=== PATIENT | female | born 1985 | race Caucasian/White ===

== ENCOUNTER 2018-02-27 21:21 | Emergency (ER) | payer MEDICAID, OTHER ==
[~2018-02-27] VITALS: Ht 182.9 cm; Wt 68.0 kg
[2018-02-27] MEDS ORDERED: CLEOCIN ONE (21:40)
[2018-02-27] MEDS ORDERED: CLEOCIN PO STA (21:42)
--- NOTE | 2018-02-27 21:50 | ER.PDOC ---
General Chief Complaint: Toothache Stated Complaint: TOOTHACHE Time seen by MD: 21:42 Source: patient Exam Limitations: no limitations History of Present Illness Initial Comments Toothache for the past few days Timing/Duration: gradual Context: fractured tooth Associated Symptoms: toothache Severity: moderate Prior symptoms/Treatment: Similar symptoms previous Allergies: Coded Allergies: amoxicillin (Verified Allergy, Unknown, 02/27/18) hydrocodone (Verified Allergy, Unknown, 02/27/18) Past Medical History Medical History: no pertinent history Surgical History: no surgical history LMP (females 10-50): 02/14/18 Social History Smoking: cigarettes, greater than 1 pack/day Alcohol Use: none Drug Use: none Constitutional: no symptoms reported Mouth: see HPI Throat: no symptoms reported Respiratory: no symptoms reported Cardiovascular: no symptoms reported Gastrointestinal: no symptoms reported Musculoskeletal: no symptoms reported All Other Systems: Reviewed and Negative Physical Exam General Appearance: alert, no distress Head/Neck: head nml inspection, neck nml inspection, trachea midline, no lymphadenopathy, thyroid nml Eyes: eyes nml inspection, PERRL, no nystagmus Mouth: dental tenderness (left upper molar), widespread dental decay Throat: pharynx nml, voice nml, no airway problems Respiratory: no resp. distress, lungs clear CVS: reg. rate & rhythm, heart sounds nml Abdomen: non-tender, no organomegaly Extremities: non-tender, ROM nml Skin Exam: Normal Color, Warm/Dry NEURO/PSYCH: oriented X3, mood/effect nml Departure Time of Disposition: 21:45 Disposition: 01 HOME, SELF-CARE Impression: Primary Impression: Pain, dental Additional Impression: Dental caries Condition: Stable Additional Instructions: Clindamycin Ibuprofen F/U with your Dentis GONZÁLEZ Duration or Time Spent with Pa: 20 mins BHAVYA CONNORS MD Feb 27, 2018 21:49
[2018-02-27 21:55] VITALS: BP 137/76
== END 2018-02-27 21:55 | disposition home or self-care (01) ==
LOC: ER 21:21
DX: K02.9 Dental caries, unspecified (principal); F17.210 Nicotine dependence, cigarettes, uncomplicated; Z88.8 Allergy status to other drugs, medicaments and biological substances; Z88.0 Allergy status to penicillin
CPT/HCPCS: 99283

== ENCOUNTER 2018-12-20 19:12 | Emergency (ER) | payer OTHER ==
[~2018-12-20] VITALS: Ht 182.9 cm; Wt 68.0 kg
[2018-12-20 19:25] VITALS: BP 135/86
[2018-12-20] MEDS ORDERED: DEPO-MEDROL IM STA (19:53)
[2018-12-20] MEDS ORDERED: MORPHINE SULFATE IV PRN (20:00)
[2018-12-20] MEDS ORDERED: NORFLEX IM STA (20:02)
[2018-12-20] MEDS ORDERED: NORFLEX ONE (20:05)
[2018-12-20] MEDS ORDERED: DEPO-MEDROL ONE (20:05)
[2018-12-20] MEDS ORDERED: SOLU-MEDROL ONE (20:09)
[2018-12-20] MEDS ORDERED: DECADRON IM STA (20:29)
[2018-12-20] MEDS ORDERED: DECADRON ONE (20:30)
--- NOTE | 2018-12-20 20:45 | DIREP ---
PROCEDURE: CT LUMBAR SPINE WITHOUT CONTRAST TECHNIQUE:Axial cuts were obtained through the lumbar spine. The images were viewed at bone and soft tissue settings. Sagittal and coronal reconstructions are provided. COMPARISON:None. INDICATIONS:BACK PAIN FINDINGS: ALIGNMENT: Normal. No subluxation. VERTEBRAE/DISCS: Four true lumbar type vertebra. L5 is transitional and partially sacralized on the left, which is a normal variant. Hypoplastic ribs are incidentally noted at T12. No fracture or compression abnormality. Small superior endplate Schmorl node at L2. Mild disc space narrowing at L4-5 with a mild broad-based disc bulge and small superimposed central disc protrusion. This results in mild central canal stenosis. No significant disc or facet degenerative changes in the remainder the lumbar spine. PARASPINAL AREA: Normal. No paraspinal edema. OTHER: Retroaortic left renal vein is incidentally noted. Minimal calcified plaque in the right common iliac artery. Visualized portions of the lower chest, abdomen, and pelvis are otherwise unremarkable. CONCLUSION: 1. No acute abnormality involving the lumbar spine. 2. Mild disc space narrowing with a broad-based disc bulge with small superimposed disc protrusion at L4-5, which results in mild central canal stenosis. 3. No significant disc facet degenerative changes at the remaining lumbar levels. 4. Transitional lumbosacral vertebra with partial sacralization of L5 on the left. This is a normal anatomic variant but may be associated with low back pain. Dictated by: Abel Toro MD on 12/20/2018 at 08:39 PM
--- NOTE | 2018-12-20 21:02 | ER.PDOC ---
General Chief Complaint: Lower Back Pain or Injury Stated Complaint: BACK PAIN Time seen by MD: 19:45 Source: patient, family Exam Limitations: no limitations History of Present Illness Timing/Duration: yesterday, getting worse Severity/Quality: severe Radiation: buttocks, upper legs Method of Injury: unknown Modifying Factors: improves with immobilization, improves with rest Associated Symptoms: muscle spasms, numbness in legs/feet, lower back pain Prior symptoms/Treatment: Similar symptoms previous Allergies: Coded Allergies: amoxicillin (Verified Allergy, Unknown, 02/27/18) hydrocodone (Verified Allergy, Unknown, 02/27/18) Past Medical History Medical History: no pertinent history, other (Migraine headahes) Surgical History: no surgical history LMP (females 10-50): this week Family History Significant Family History: no pertinent family hx Social History Smoking: non-smoker, cigarettes, greater than 1 pack/day Alcohol Use: heavy Drug Use: none Review of Systems Constitutional: no symptoms reported EENTM: no symptoms reported Respiratory: no symptoms reported Cardiovascular: no symptoms reported Gastrointestinal: no symptoms reported Genitourinary: no symptoms reported Musculoskeletal: back pain, muscle pain Skin: no symptoms reported Psychiatric/Neurological: no symptoms reported Physical Exam General Appearance: WD/WN, Moderate Distress HEENT: PERRL/EOMI, Normal ENT Inspection, TMs Normal Neck: Full Range of Motion, Other (Flexion of neck causes pain in lower back) Cardiovascular/Respiratory: Regular Rate, Rhythm, No M/R/G Gastrointestinal: Normal Bowel Sounds, No Organomegaly, Non Tender Back: Normal Inspection, No CVA Tenderness, Muscle Spasm, Vertebral Tenderness, Other (Tenderness over 4th lumbar spine and paracervical muscles + SLR bilaterally radiating down lateral thighs.) Extremities: No Evidence of Injury, Normal Range of Motion 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, 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, No Motor/Sensory Deficits Skin: Normal Color Results/Orders Results/Orders Orders - BETO HALL MD Ct Lumbar Wo Contrast (12/20/18 19:49) Start Iv (12/20/18 19:53) Morphine Sulfate (Morphine Sulfate) (12/20/18 20:00) Orphenadrine Citrate (Norflex) (12/20/18 20:02) Methylprednisolone Acetate (Depo-Medrol) (12/20/18 20:05) Orphenadrine Citrate (Norflex) (12/20/18 20:05) Methylprednisolone Sod Succ (Solu-Medrol (12/20/18 20:09) Dexamethasone Sod Phosphate (Decadron) (12/20/18 20:29) Dexamethasone Sod Phosphate (Decadron) (12/20/18 20:30) Vital Signs Date Time Temp Pulse Resp B/P (MAP) Pulse Ox O2 Delivery O2 Flow Rate FiO2 12/20/18 19:25 97.9 69 18 135/86 (102) 98 Room Air 97.9 12/20/18 19:21 97.9 76 18 98 Room Air 97.9 12/20/18 19:21 97.9 69 18 97.9 Administered Medications Medications (Trade) Dose Ordered Sig/Adela Route PRN Reason Start Time Stop Time Status Last Admin Dose Admin Dexamethasone Sodium Phosphate (Decadron) 4 mg STAT STAT IM 12/20/18 20:29 12/20/18 20:31 DC 12/20/18 20:35 4 MG Orphenadrine Citrate (Norflex) 60 mg STAT STAT IM 12/20/18 20:02 12/20/18 20:04 DC 12/20/18 20:15 60 MG Progress Progress Spasms in low back, radiating pain both resolved after Norflex injection. CT scan shows bulging disk L4-5 level. No bony lesions or obvious disk impingement on nerve roots. EKG/XRAY/CT/US XRAY: CT Comments: CT Lumbar spine reports bulging disk L4-5 Departure Time of Disposition: 21:44 Disposition: 04 DISCH/XFER Inter Med Care Impression: Primary Impression: Low back pain Additional Impression: Lumbar sprain Condition: Stable Patient Instructions: Back Exercises, Generic, SportsMed Referrals: PCP,UNKNOWN (PCP) PRIMARY CARE PROVIDER Additional Instructions: Flexeril 10 mg tid prn back spasms#30, Tramadol 50 mg po qid prn #20 Start stretching exercises as tolerated. Follow up with PCP early next week. Duration or Time Spent with Pa: 30 Problem Qualifiers Primary Impression: Low back pain Chronicity: acute Back pain laterality: midline Sciatica presence: with sciatica Sciatica laterality: bilateral sciatica Qualified Codes: M54.42 - Lumbago with sciatica, left side; M54.41 - Lumbago with sciatica, right side BETO HALL MD December 20, 2018 21:02
[2018-12-20 21:52] VITALS: BP 135/86
== END 2018-12-20 21:52 ==
LOC: ER 19:12
DX: S33.5XXA Sprain of ligaments of lumbar spine, initial encounter (principal); F17.210 Nicotine dependence, cigarettes, uncomplicated; Z88.0 Allergy status to penicillin; Z88.5 Allergy status to narcotic agent; X58.XXXA Exposure to other specified factors, initial encounter; Y93.89 Activity, other specified; Y92.89 Other specified places as the place of occurrence of the external cause; Y99.8 Other external cause status
CPT/HCPCS: 72131; 96372; 99284; J1100; J2360; J2920; J1030

== ENCOUNTER 2021-07-13 10:08 | Emergency (ER) | payer OTHER ==
[~2021-07-13] VITALS: Ht 182.9 cm; Wt 63.5 kg
[2021-07-13 10:28] VITALS: BP 157/103
--- NOTE | 2021-07-13 10:59 | ER.PDOC ---
General Chief Complaint: Cough/Congestion Stated Complaint: N/V/D/COUGH/FEVER/HEADACHE Time seen by MD: 10:55 Source: patient Exam Limitations: no limitations History of Present Illness Initial Comments Cough, congestion, nausea, vomiting, runny nose and fever for 2 weeks. Timing/Duration: gradual Severity: moderate Associated Symptoms: fever/chills, runny nose, cough Allergies: Coded Allergies: amoxicillin (Verified Allergy, Unknown, 02/27/18) hydrocodone (Verified Allergy, Unknown, 02/27/18) Constitutional: see HPI EENTM: see HPI Respiratory: see HPI Cardiovascular: no symptoms reported Gastrointestinal: nausea, vomiting All Other Systems: Reviewed and Negative Past Medical History Medical History: no pertinent history Surgical History: no surgical history Family History Significant Family History: no pertinent family hx Social History Smoking: greater than 1 pack/day Alcohol Use: occassionally Drug Use: none Physical Exam Eye: eyes nml inspection Nose: rhinorrhea Throat: pharynx nml, airway nml Neck: nml inspection, supple Respiratory: no resp.distress, breath sounds nml Abdomen: non-tender, no organomegaly CVS: reg rate & rhythm, heart sounds nml Skin: color nml, no rash, warm/dry Extremities: non-tender, nml ROM, no pedal edema NEURO/PSYCH: oriented x 3, CN's nml as tested, motor nml, sensation nml, mood/affect nml Results/Orders Results/Orders Orders - BHAVYA CONNORS MD Influenza A&B (07/13/21 10:51) Covid19 Antigen Sheri Goldie (07/13/21 10:51) Xr Chest 1v (07/13/21 10:51) Vital Signs Date Time Temp Pulse Resp B/P (MAP) Pulse Ox O2 Delivery O2 Flow Rate FiO2 07/13/21 10:28 98.5 75 18 07/13/21 10:28 98.5 75 18 157/103 (121) 98 Room Air 07/13/21 10:28 98.5 75 18 98 Laboratory Tests Test 07/13/21 10:30 Influenza Type A Antigen NEGATIVE (NEG) Influenza Type B Antigen NEGATIVE (NEG) SARS-CoV-2 Antigen (Rapid) POSITIVE (NEGATIVE) *A Progress Progress Chest x-ray is normal and COVID-19 antigen is positive. Flu A&B negative. ER DEPART Departure Time of Disposition: 12:20 Disposition: 01 HOME / SELF CARE / HOMELESS Impression: Primary Impression: COVID-19 virus infection Condition: Stable Referrals: PCP,UNKNOWN (PCP) PRIMARY CARE PROVIDER Additional Instructions: Z-Raul Prednisone Vitamin C, D and zinc [id number] Mucinex DM [id number] as directed Self quarantine for 10 days at home Follow-up PCP in 1 week Return to ED if worsening symptoms or concerns Duration or Time Spent with Pa: 20 min BHAVYA CONNORS MD Jul 13, 2021 10:59
--- NOTE | 2021-07-13 11:09 | DIREP ---
PROCEDURE:CHEST 1 VIEW COMPARISON:None. INDICATIONS:Cough FINDINGS: LUNGS/PLEURA:No significant pulmonary parenchymal abnormalities. No effusions. VASCULATURE:Normal. Unremarkable pulmonary vasculature. CARDIAC:Normal. No cardiac silhouette abnormality or cardiomegaly. MEDIASTINUM:Normal. No visible mass or adenopathy. BONES:Normal. No fracture or visible bony lesion. OTHER:Negative. CONCLUSION:Normal chest examination. Dictated by: Manuelito Bearden M.D. on 07/13/2021 at 11:06 AM
--- NOTE | 2021-07-13 11:44 | NUR ---
LAB COVID POSITIVE , REPORTED TO EDP.
== END 2021-07-13 12:30 | disposition home or self-care (01) ==
LOC: ER 10:08
DX: U07.1 COVID-19 (principal); F17.210 Nicotine dependence, cigarettes, uncomplicated; Z88.0 Allergy status to penicillin; Z88.5 Allergy status to narcotic agent
CPT/HCPCS: 71045; 87426; 87804; 99284

== ENCOUNTER 2022-01-13 09:03 | Emergency (ER) | payer SELFPAY ==
[~2022-01-13] VITALS: Ht 182.9 cm; Wt 63.5 kg
[2022-01-13 09:03] VITALS: BP 137/85
--- NOTE | 2022-01-13 09:03 | NUR ---
ARRIVAL PATIENT ARRIVED TO [facility] AMBULATORY, C/O DENTAL PAIN SINCE YESTERDAY, HAS BEEN TAKING OVER THE COUNTER MEDICATIONS WITH MINIMAL RELIEF, CAME TO THE ED FOR EVAL.
--- NOTE | 2022-01-13 09:43 | ER.PDOC ---
General Chief Complaint: Toothache Stated Complaint: ABSCESS LEFT SIDE OF FACE Time seen by MD: 09:25 Source: patient Exam Limitations: no limitations History of Present Illness Initial Comments This is a 36-year-old female with an unremarkable medical history with the exception of dental decay and dental infections. She has a severely decayed left maxillary second premolar down to the gumline and now she has developed swelling of the facial area in the area of the left maxillary sinus. There is been no fever or chills and no neurological symptoms. Allergies: Coded Allergies: amoxicillin (Verified Allergy, Unknown, 02/27/18) hydrocodone (Verified Allergy, Unknown, 02/27/18) Past Medical History Medical History: no pertinent history Surgical History: no surgical history Social History Smoking: cigarettes Alcohol Use: heavy Drug Use: none Constitutional: denies chills, denies fever Eyes: denies blurred vision, denies inflammation Ears: denies dizziness, denies bloody discharge Nose: denies clots, denies bloody discharge Mouth: denies clots, denies purulent discharge Throat: denies pain, denies neck stiffness Respiratory: denies cough, denies shortness of breath Cardiovascular: denies chest pain, denies syncope Gastrointestinal: denies abdominal pain, denies vomiting Musculoskeletal: denies back pain, denies joint swelling Skin: denies lesions, denies rash Neurological: denies anxiety, denies depressed Hematologic/Lymphatic: denies easy bleeding, denies easy bruising Immunological/Allergic: denies food allergy Physical Exam General Appearance: alert, no distress Head/Neck: neck nml inspection, trachea midline, (L) maxillary swelling Eyes: eyes nml inspection, PERRL, no nystagmus Mouth: lips, gums nml, no drooling, membranes nml, widespread dental decay (Severe decay, few remaining teeth decayed all the way down flush with the gum line) Throat: pharynx nml, voice nml, no airway problems Ears/Nose: nml inspection Respiratory: no resp. distress, lungs clear CVS: reg. rate & rhythm, heart sounds nml Abdomen: non-tender Extremities: non-tender, ROM nml Skin Exam: Normal Color, Warm/Dry NEURO/PSYCH: oriented X3, mood/effect nml Results/Orders Results/Orders Vital Signs Date Time Temp Pulse Resp B/P (MAP) Pulse Ox O2 Delivery O2 Flow Rate FiO2 6/10/22 09:03 98.1 82 18 94 ER DEPART Departure Time of Disposition: 09:40 Disposition: 01 HOME / SELF CARE / HOMELESS Impression: Primary Impression: Maxillary sinusitis, acute Additional Impression: Dental abscess Condition: Stable Patient Instructions: Dental Abscess, Dental Caries Referrals: PCP,UNKNOWN (PCP) PRIMARY CARE PROVIDER Additional Instructions: Make a dental appointment as soon as possible. Duration or Time Spent with Pa: [address] MD Jan 13, 2022 09:43
[2022-01-13 09:54] VITALS: BP 137/88
== END 2022-01-13 09:54 | disposition home or self-care (01) ==
LOC: ER 09:03
DX: K04.7 Periapical abscess without sinus (principal); F17.210 Nicotine dependence, cigarettes, uncomplicated; J01.00 Acute maxillary sinusitis, unspecified; L02.01 Cutaneous abscess of face; Z88.0 Allergy status to penicillin; Z88.5 Allergy status to narcotic agent
CPT/HCPCS: 99281

== ENCOUNTER 2022-05-15 09:58 | Emergency (ER) | payer SELFPAY ==
[~2022-05-15] VITALS: Ht 182.9 cm; Wt 61.2 kg
[2022-05-15 09:58] VITALS: BP 134/63
--- NOTE | 2022-05-15 09:58 | NUR ---
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
[2022-05-15] MEDS ORDERED: TORADOL IM STA (10:17)
[2022-05-15] MEDS ORDERED: ROBAXIN PO STA (10:17)
[2022-05-15] MEDS ORDERED: TORADOL ONE (10:28)
[2022-05-15] MEDS ORDERED: ROBAXIN ONE (10:28)
--- NOTE | 2022-05-15 10:54 | DIREP ---
PROCEDURE:XRAY SPINE THORACIC MINIMUM 4 VIEWS COMPARISON:None. INDICATIONS:thoracic spine pain TECHNIQUE:Five views of the thoracic spine. FINDINGS:Normal vertebral body height. Minimal anterior and lateral osteophyte formation. Mild facet arthrosis. No loss of disc height. CONCLUSION:Minimal degenerative change without acute bony abnormality. Dictated by: Cisco Juarez M.D. on 05/15/2022 at 10:52 AM
--- NOTE | 2022-05-15 10:58 | ER.PDOC ---
General Chief Complaint: Back Pain/Injury Stated Complaint: BACK PAIN Time seen by MD: 10:05 Source: patient Exam Limitations: no limitations History of Present Illness Initial Comments was using an industrial can opening at work when developed a back spasm Timing/Duration: just prior to arrival Severity/Quality: severe Modifying Factors: worse with cold therapy, worse with immobilization, worse with jarring, worse with movement, worse with pain medication, worse with rest, worse with other Associated Symptoms: muscle spasms Allergies: Coded Allergies: amoxicillin (Verified Allergy, Unknown, 02/27/18) hydrocodone (Verified Allergy, Unknown, 02/27/18) Past Medical History Medical History: no pertinent history Surgical History: no surgical history Social History Alcohol Use: heavy Drug Use: marijuana Review of Systems Constitutional: denies no symptoms reported, denies see HPI, denies chills, denies diaphoresis, denies fever, denies malaise, denies weakness, denies other Musculoskeletal: see HPI All Other Systems: Reviewed and Negative Physical Exam General Appearance: No Apparent Distress, WD/WN HEENT: PERRL/EOMI, Normal ENT Inspection, TMs Normal, Pharynx Normal Neck: Non-Tender, Normal Alignment Cardiovascular/Respiratory: Regular Rate, Rhythm, No M/R/G, Normal Peripheral Pulses, No JVD, Normal Breath Sounds, No Respiratory Distress Gastrointestinal: Normal Bowel Sounds, No Organomegaly, No Pulsatile Mass, Non Tender, Soft Back: Muscle Spasm Extremities: No Evidence of Injury, Normal Range of Motion, Non-Tender, No Pedal Edema, Pelvis Stable 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, 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, mood/effect nml, No Motor/Sensory Deficits, Relexes nml Skin: Normal Color, Warm/Dry Results/Orders Results/Orders Orders - MICK VU MD Ketorolac Tromethamine (Toradol) (05/15/22 10:17) Methocarbamol (Robaxin) (05/15/22 10:17) Xr Tspine 4+V (05/15/22 10:17) Ketorolac Tromethamine (Toradol) (05/15/22 10:28) Methocarbamol (Robaxin) (05/15/22 10:28) Vital Signs Date Time Temp Pulse Resp B/P (MAP) Pulse Ox O2 Delivery O2 Flow Rate FiO2 05/15/22 09:58 98.5 82 18 99 10/10/22 09:58 98.5 82 18 05/15/22 09:58 98.5 82 18 134/63 (86) 99 Room Air* 0 21 Administered Medications Medications (Trade) Dose Ordered Sig/Adela Route PRN Reason Start Time Stop Time Status Last Admin Dose Admin Ketorolac Tromethamine (Toradol) 60 mg OT STAT IM 05/15/22 10:17 05/15/22 10:22 DC 05/15/22 10:32 60 MG Methocarbamol (Robaxin) 1,500 mg OT STAT PO 05/15/22 10:17 05/15/22 10:22 DC 05/15/22 10:33 1,500 MG Progress Progress ddx; fx, spasm ER DEPART Departure Time of Disposition: 10:56 Disposition: 01 HOME / SELF CARE / HOMELESS Impression: Primary Impression: Thoracic back sprain Condition: Stable Patient Instructions: Back Pain, Adult Referrals: PCP,UNKNOWN (PCP) PRIMARY CARE PROVIDER Additional Instructions: toradol robaxin f/u w pcp in 2 Duration or Time Spent with Pa: 30 MICK VU MD May 15, 2022 10:58
== END 2022-05-15 11:16 | disposition home or self-care (01) ==
LOC: ER 09:58
DX: S23.3XXA Sprain of ligaments of thoracic spine, initial encounter (principal); F12.90 Cannabis use, unspecified, uncomplicated; F10.90 Alcohol use, unspecified, uncomplicated; Z88.5 Allergy status to narcotic agent; Z88.0 Allergy status to penicillin; X58.XXXA Exposure to other specified factors, initial encounter; Y93.89 Activity, other specified; Y92.89 Other specified places as the place of occurrence of the external cause; Y99.0 Civilian activity done for income or pay
CPT/HCPCS: 99283; 96372; 72074; J1885